=== PATIENT | male | born 1955 | race Two or more races ===

== ENCOUNTER 2018-01-10 10:06 | Emergency (ER) | payer OTHER ==
[2018-01-10 10:30] VITALS: BMI 35.5
--- NOTE | 2018-01-10 10:40 | PDOC ---
History of Present Illness - History of Present Illness Initial Comments: 62 year old male with PMH HTN, CAD (stents x 3 in 1999), GERD, NIDDM, and dyslipidemia presenting with pain, swelling, and erythema to his right lower leg for the past week. Patient tripped in his driveway on and cut his leg on 01/04 over a barbell and scratched his leg on the cement. His family noticed some redness and swelling over the laceration. He went to urgent care and received 2.5-3 days of doxycycline 100 BID but it has worsened since then. He hasn't discussed this with his PCP (Dr. Phillips). Denies any fevers, chills, drainage from the wound, or other symptoms. He has had an infection of his left leg before but needed IV antibiotics after some failed PO therapy in the past. 01/10/18 10:42 <Mary Springer - Last Filed: 01/10/18 14:05> <Collins Riley - Last Filed: 01/10/18 16:02> - General Chief Complaint: Wound Stated Complaint: LACERRATION LOWER RT LEG Time Seen by Provider: 01/10/18 10:40 Past History - Past Medical History Anemia: No Asthma: No Cancer: No Cardiac Disorders: Yes ([place] STENT TIMES TWO) CVA: No COPD: No CHF: No Dementia: No Diabetes: Yes (borderline) GI Disorders: Yes (GAS) Disorders: Yes (BLADDER TUMOR) HTN: Yes Hypercholesterolemia: Yes Liver Disease: No Seizures: No Thyroid Disease: No - Surgical History Abdominal Surgery: No Appendectomy: No Cardiac Surgery: Yes (STENT TIMES TWO) Cholecystectomy: No Lung Surgery: No Neurologic Surgery: No Orthopedic Surgery: Yes (LEFT FEMUR FX WITH AHMET INSERTION AND REMOVAL) - Immunization History Immunization Up to Date: Yes - Suicide/Smoking/Psychosocial Hx Smoking Status: No Smoking History: Never smoked Have you smoked in the past 12 months: No Number of Cigarettes Smoked Daily: 0 Hx Alcohol Use: No Drug/Substance Use Hx: No Substance Use Type: None Hx Substance Use Treatment: No <Mary Springer - Last Filed: 01/10/18 14:05> <Collins Riley - Last Filed: 01/10/18 16:02> - Past Medical History Allergies/Adverse Reactions: Allergies Allergy/AdvReac Type Severity Reaction Status Date / Time No Known Allergies Allergy Verified 02/17/14 17:17 Home Medications: Ambulatory Orders Aspirin 81 mg PO DAILY 05/21/13 Atorvastatin Ca [Lipitor] 40 mg PO HS 05/21/13 Enalapril Maleate [Vasotec -] 5 mg PO DAILY 05/21/13 Metoprolol Succinate [Toprol XL -] 25 mg PO DAILY 05/21/13 Lansoprazole [Prevacid] 30 mg PO DAILY 03/11/15 Bacillus Coagulans [Probiotic] 1 each PO DAILY 14 Days #14 capsule. 01/10/18 Cephalexin [Keflex] 500 mg PO QID 10 Days #40 capsule 01/10/18 Clindamycin [Cleocin -] 300 mg PO TID 10 Days #30 capsule 01/10/18 Review of Systems - Review of Systems Constitutional: No: Chills, Diaphoresis, Fever, Loss of Appetite HEENTM: No: Blurred Vision, Tearing, Recent change in vision, Double Vision Respiratory: No: Cough, Orthopnea, Shortness of Breath Cardiac (ROS): No: Chest Pain, Edema, Irregular Heart Rate ABD/GI: No: Abdominal Distended, Constipated, Diarrhea, Nausea, Poor Appetite : No: Burning, Dysuria, Discharge, Frequency Musculoskeletal: No: Gout, Joint Pain, Joint Swelling, Joint Stiffness Integumentary: Yes: Erythema, Lesions, Rash. No: Bruising Neurological: No: Headache, Numbness, Paresthesia, Pre-Existing Deficit Hematologic/Lymphatic: No: Anemia, Blood Clots, Easy Bleeding, Easy Bruising <Mary Springer - Last Filed: 01/10/18 14:05> *Physical Exam - Vital Signs Last Vital Signs Temp Pulse Resp BP Pulse Ox 97.5 F L 63 18 163/80 97 01/10/18 10:24 01/10/18 10:24 01/10/18 10:24 01/10/18 10:24 01/10/18 10:24 - Physical Exam General Appearance: Yes: Nourished, Appropriately Dressed. No: Apparent Distress HEENT: positive: EOMI, MARIXA, Normal ENT Inspection, Normal Voice Neck: positive: Trachea midline, Normal Thyroid, Supple. negative: Tender, Rigid Respiratory/Chest: positive: Lungs Clear, Normal Breath Sounds. negative: Chest Tender, Respiratory Distress Cardiovascular: positive: Regular Rhythm, Regular Rate Gastrointestinal/Abdominal: positive: Normal Bowel Sounds, Flat, Soft. negative : Tender Musculoskeletal: positive: Normal Inspection. negative: Decreased Range of Motion Extremity: positive: Normal Capillary Refill, Normal Range of Motion, Tender. negative: Normal Inspection (5x 4 area of erythema and slight swelling over right inferior lateral leg with 4 cm laceration across leg. Tender to palpation but no drainage or fluctuance. No streaking or mottling peripheral to the wound. ) Integumentary: positive: Dry, Warm, Erythema, Rash. negative: Normal Color Neurologic: positive: hull molder II-XII NML intact, Fully Oriented, Alert, Normal Mood/ Affect, Normal Response, Motor Strength 5/5 <Mary Springer - Last Filed: 01/10/18 14:05> - Vital Signs Last Vital Signs Temp Pulse Resp BP Pulse Ox 97.7 F 60 18 141/95 99 01/10/18 14:48 01/10/18 14:48 01/10/18 14:48 01/10/18 14:48 01/10/18 14:48 <Collins Riley - Last Filed: 01/10/18 16:02> ED Treatment Course - LABORATORY CBC & Chemistry Diagram: 01/10/18 12:00 01/10/18 12:00 <Mary Springer - Last Filed: 01/10/18 14:05> - LABORATORY CBC & Chemistry Diagram: 01/10/18 12:00 01/10/18 12:00 - ADDITIONAL ORDERS Additional order review: Laboratory Results 01/10/18 12:00 Sodium 137 Potassium 3.9 Chloride 102 Carbon Dioxide 30 Anion Gap 4 L BUN 17 Creatinine 1.2 Creat Clearance w eGFR > 60 Random Glucose 163 H Calcium 9.0 Total Bilirubin 0.4 AST 17 ALT 28 Alkaline Phosphatase 91 C-Reactive Protein < 0.3 Total Protein 7.4 Albumin 4.0 01/10/18 12:00 RBC 5.02 MCV 88.0 MCHC 33.2 RDW 13.6 MPV 9.8 D Neutrophils % 64.3 Lymphocytes % 26.7 Monocytes % 7.6 Eosinophils % 0.7 Basophils % 0.7 <Collins Riley - Last Filed: 01/10/18 16:02> Medical Decision Making - Medical Decision Making 62 year old diabetic male with right lower leg laceration and worsening erythema concerning for cellulitis refractory to PO doxycycline therapy x 2-3 days. Labs, foot XR, and doppler all WNL. un-concerning. Patient overall is very well appearing. Will C with crutches, wound care follow up in two days, and abx spectrum increase to Bactrim/ Keflex to cover anaerobes/ gram negatives. Patient is OK with this plan and understands that he need to see the personnel security specialist tomorrow. 01/10/18 13:07 <Mary Springer - Last Filed: 01/10/18 14:05> - Medical Decision Making Clindamycin, not bactrim / keflex 2/2 pt. is on an jeannette <Collins Riley - Last Filed: 01/10/18 16:02> *DC/Admit/Observation/Transfer - Discharge Dispostion Decision to Admit order: No <Mary Springer - Last Filed: 01/10/18 14:05> <Collins Riley - Last Filed: 01/10/18 16:02> Diagnosis at time of Disposition: Cellulitis, leg Qualifiers: Laterality: right Qualified Code(s): L03.115 - Cellulitis of right lower limb - Discharge Dispostion Disposition: HOME Condition at time of disposition: Stable - Prescriptions Prescriptions: Bacillus Coagulans [Probiotic] 1 each PO DAILY 14 Days #14 capsule. Cephalexin [Keflex] 500 mg PO QID 10 Days #40 capsule Clindamycin [Cleocin -] 300 mg PO TID 10 Days #30 capsule - Referrals Referrals: William Cote MD [Staff Physician] - - Patient Instructions Printed Discharge Instructions: DI for Wound Infection Additional Instructions: Sangramos que mayo herida no sea tratada con antibiticos orales y no necesita antibiticos por va intravenosa. Vaya a la farmacia en [address] y obtenga los nuevos antibiticos. Necesitas Bactrim y Keflex. Keflex es cuatro veces al da silvano vicky valentino. Bactrim es flori veces al da silvano 10 valentino. Tambin te dimos probiticos que ayudan a tu estmago. Algunos antibiticos pueden cambiar kobi heces, por lo que los probiticos evitarn que esto suceda. Tmalos altagracia vez al da. Por favor tome los antibiticos hoy. Regrese maana para altagracia revisin de heridas en el primer piso de la clnica de cuidado de heridas a las 10:00 AM. Por favor use muletas para ayudar a mantener el peso fuera de mayo pie. Regrese antes si tiene fiebre, escalofros, nuseas, vmitos y diarrea. Print Language: PORTUGUESE
[2018-01-10 12:13] LABS: BASO % 0.7 % (0-2.0); EOS % 0.7 % (0-4.5); HEMATOCRIT 44.2 % (35.4-49); HEMOGLOBIN 14.7 GM/dL (11.7-16.9); LYMPH % 26.7 % (8-40); MCH 29.2 pg (25.7-33.7); MCHC 33.2 g/dl (32.0-35.9); MEAN PLT VOLUME 9.8 fl (7.5-11.1); MONO % 7.6 % (3.8-10.2); NEUT % 64.3 % (42.8-82.8); PLATELET COUNT 218 K/MM3 (134-434); RBC 5.02 M/mm3 (4.00-5.60); RDW 13.6 % (11.9-15.9); WHITE BLOOD COUNT 6.7 K/mm3 (4.0-10.0)
--- NOTE | 2018-01-10 12:19 | PDOC ---
Attending Attestation - Resident Resident Name: Mary Springer - ED Attending Attestation I have performed the following: I have examined & evaluated the patient, The case was reviewed & discussed with the resident, I agree w/resident's findings & plan, Exceptions are as noted - HPI HPI: 01/10/18 12:18 Reviewed Residents HPI - Physicial Exam PE: 01/10/18 12:18 Reviewed Residents PE - Medical Decision Making 01/10/18 12:18 62 years old past medical history significant for hypertension, NIDDM, CAD stents 3, GERD, dyslipidemia presents with wounds and infection to right lower leg. This occurred 6 days ago patient was treated with doxycycline 2-3 days ago from an urgent care but the redness swelling and pain has progressively worsened Rash on leg is approximately 4 cm x 4 cm. There is no lymphangitic spread. 2-1/2 days on antibiotics patient well-appearing no fever no white count at this time I think it is reasonable to change and it patient's anabiotic coverage to clindamycin. We have made an appointment for him to follow up in our wound care clinic tomorrow at 10 AM. If there is any significant worsening by tomorrow morning patient will return to the emergency department for admission for IV antibiotics otherwise will trial clindamycin closely observe patient and reassessed Findings, the need for follow-up and strict return instructions discussed with patient.
[2018-01-10 12:38] LABS: ALK PHOS 91 U/L (45-117); ANION GAP 4 MMOL/L (8-16); BILIRUBIN,TOTAL 0.4 mg/dL (0.2-1); BLOOD UREA NITROGEN 17 mg/dL (7-18); CHLORIDE 102 mmol/L (98-107); CO2 30 mmol/L (21-32); CREATININE 1.2 mg/dL (0.55-1.3); GLUCOSE,RANDOM 163 mg/dL (74-106); POTASSIUM 3.9 mmol/L (3.5-5.1); SGOT/AST 17 U/L (15-37); SGPT/ALT 28 U/L (13-61); SODIUM 137 mmol/L (136-145); TOT PROT 7.4 g/dl (6.4-8.2)
[2018-01-10 13:27] LABS: ERYTHROCYTE SEDIMENTATION RATE 8 mm/hr (0-20)
[2018-01-10 14:50] VITALS: BP 141/95; PULSE 60; TEMP 97.7
== END 2018-01-10 14:50 | disposition home or self-care (01) ==
LOC: JER 10:06
DX: S81.811A Laceration without foreign body, right lower leg, initial encounter (principal); L03.115 Cellulitis of right lower limb; W01.0XXA Fall on same level from slipping, tripping and stumbling without subsequent striking against object, initial encounter; Y93.89 Activity, other specified; Y92.038 Other place in apartment as the place of occurrence of the external cause; Y99.8 Other external cause status; I25.10 Atherosclerotic heart disease of native coronary artery without angina pectoris; Z95.5 Presence of coronary angioplasty implant and graft; I10 Essential (primary) hypertension; I25.2 Old myocardial infarction; E11.9 Type 2 diabetes mellitus without complications; K21.9 Gastro-esophageal reflux disease without esophagitis; E78.5 Hyperlipidemia, unspecified
CPT/HCPCS: 36415; 73590-TC-RT-FY; 80053; 85025; 85651; 86140; 87040; 93971-TC; 99282-25

== ENCOUNTER 2019-01-07 04:50 | Emergency (ER) | payer OTHER ==
[2019-01-07 05:24] VITALS: BMI 35.5
[2019-01-07] MEDS ORDERED: SODIUM CHLORIDE 0.9% 500 ML INFUS.BAG IV ONE (05:33)
--- NOTE | 2019-01-07 05:33 | PDOC ---
History of Present Illness - General Chief Complaint: Pain, Acute Stated Complaint: PAIN/BLOOD IN URINE Time Seen by Provider: 01/07/19 05:18 - History of Present Illness Initial Comments: 01/07/19 06:17 63yo M hx DM, HTN, CAD (s/p 3 stents in 1999), and HLD presents from home c/o hematuria and R flank/RLQ pain. Hematuria x2 days, intermittent. Endorses chronic polyuria; denies urgency or dysuria. R flank pain started last night rapid onset intermittent stabbing, initially in R flank then moved anteriorly and is now in RLQ with pains radiating down R leg (making it feel sleepy), took 1 pill of unknown OTC pain medication at 0300 without improvement. Denies trauma , hx kidney stones or UTI or kidney issues, midline back pain, hx back pain, hx similar sx. Endorses nausea x 2days, denies vomiting. Endorses mild intermittent lightheadedness, denies vertigo. Has not eaten since yesterday due to nausea. Denies fever, chills, fatigue, headache, syncope, vertigo, numbness/ tingling, weakness, vision changes, shortness of breath, cough, chest pain, palpitations, leg swelling, blood in stool, diarrhea, constipation, vomiting, dysuria, sick contacts, recent travel. Past History - Past Medical History Allergies/Adverse Reactions: Allergies Allergy/AdvReac Type Severity Reaction Status Date / Time No Known Allergies Allergy Verified 01/07/19 05:15 Home Medications: Ambulatory Orders Aspirin 81 mg PO DAILY 01/07/19 Atorvastatin Ca [Lipitor] 40 mg PO HS 01/07/19 Ibuprofen [Motrin -] 600 mg PO QID #30 tablet 01/07/19 Linagliptin [Tradjenta] 5 mg PO DAILY 01/07/19 Lisinopril [Prinivil] 20 mg PO DAILY 01/07/19 Metoprolol Succinate [Toprol Xl] 25 mg PO DAILY 01/07/19 Omeprazole 40 mg PO DAILY 01/07/19 Oxybutynin Chloride [Oxybutynin Chloride ER] 15 mg PO DAILY 01/07/19 Anemia: No Asthma: No Cancer: No Cardiac Disorders: Yes ([place] STENTS) CVA: No COPD: No CHF: No Dementia: No Diabetes: Yes (borderline) GI Disorders: Yes (GAS) Disorders: Yes (BLADDER TUMOR) HTN: Yes Hypercholesterolemia: Yes Liver Disease: No Seizures: No Thyroid Disease: No - Surgical History Abdominal Surgery: No Appendectomy: No Cardiac Surgery: Yes (STENTS) Cholecystectomy: No Lung Surgery: No Neurologic Surgery: No Orthopedic Surgery: Yes (LEFT FEMUR FX WITH AHMET INSERTION AND REMOVAL) - Immunization History Immunization Up to Date: Yes - Psycho Social/Smoking Cessation Hx Smoking Status: No Smoking History: Unknown if ever smoked Have you smoked in the past 12 months: No Number of Cigarettes Smoked Daily: 0 Hx Alcohol Use: No Drug/Substance Use Hx: No Substance Use Type: None Hx Substance Use Treatment: No Review of Systems - Review of Systems Comments:: 01/07/19 06:17 Constitutional: Negative for chills, fever, fatigue, diaphoresis. HENT: Negative for sore throat, rhinorrhea, congestion. Eyes: Negative for visual disturbance. Respiratory: Negative for shortness of breath, cough, and wheezing. Cardiovascular: Negative for chest pain, palpitations, and leg swelling. Gastrointestinal: Positive for abdominal pain, nausea. Negative for blood in stool, constipation, diarrhea, and vomiting. Genitourinary: Positive for R flank pain and hematuria. Negative for dysuria. Musculoskeletal: Negative for myalgias, back pain, and neck pain. Skin: Negative for rash. Neurological: Positive for light-headedness. Negative for vertigo, syncope, weakness, numbness and headaches. Psychiatric/Behavioral: Negative for behavioral problems and confusion. *Physical Exam - Vital Signs Last Vital Signs Temp Pulse Resp BP Pulse Ox 97.5 F L 94 H 20 144/80 97 01/07/19 05:09 01/07/19 05:09 01/07/19 05:09 01/07/19 05:09 01/07/19 05:09 - Physical Exam Comments: 01/07/19 06:17 Gen: Alert, NAD, uncomfortable-appearing in pain, obese HEENT: PERRL, EOMI, MMM, NCAT. No conjunctival pallor. Sclera are non-icteric. CV: Regular rate and rhythm. No murmurs, rubs, or gallops. PULM: No resp distress. CTAB, no wheezes, rales, or rhonchi. ABD: +R CVA tenderness, protuberant, soft, NT/ND, no rebound tenderness or guarding. BACK: No TTP of c/t/l-spine. No step-offs or deformities. MSK: No bony deformities. 2+ pulses in all extremities. NEURO: AAOx3. PERRL. No gross CN deficits. Strength and sensation grossly intact throughout. EXTREMITIES: No cyanosis. No clubbing. No edema. No calf tenderness. PSYCH: Normal mood and thought pattern. SKIN: Warm and dry. Normal capillary refill. No rashes. No jaundice. ED Treatment Course - LABORATORY CBC & Chemistry Diagram: 01/07/19 06:50 01/07/19 06:50 Medical Decision Making - Medical Decision Making 01/07/19 06:17 63yo M hx DM, HTN, CAD (s/p 3 stents in 1999), and HLD presents from home with hematuria x2 days and 1 night of pain starting in R flank now moved to RLQ radiating down R leg, associated with nausea. Of note, pt denies kidney or bladder problems, but hx renal mass and bladder tumor per chart. Hemodynamically stable, afebrile, +R CVA tenderness. Most likely renal etiology , renal stone vs UTI/pyelo vs renal mass - UA/UC and R renal US. Also consider bladder etiology due to hx of bladder tumor. Consistency of presentation with kidney stones makes other etiologies of lower concern - pending labs and R renal US, consider further testing of other pathologies. Consider GI pathologies such as appendicitis, diverticulitis, or colitis, though of low concern due to location of pain; hematuria; and lack of fever, diarrhea, or vomiting. Very low concern for cardiac or pulmonary etiology due to lack of CP or SOB. Very low concern for vascular pathology such as aortic dissection due to lack of tearing nature of pain, location of pain, hemodynamic stability, and BP 120s-140s/70s-80s in b/l arms - no further testing indicated at this time. -CBC, CMP, Coags, UA/UC -Morphine for pain -IVF -R renal US -Pending US and labs, consider CT -Dispo: pending w/u 01/07/19 07:[address] Larios. Discharge - Discharge Information Problems reviewed: Yes Clinical Impression/Diagnosis: Hematuria Qualifiers: Hematuria type: unspecified type Qualified Code(s): R31.9 - Hematuria, unspecified Condition: Stable Disposition: HOME - Additional Discharge Information Prescriptions: Ibuprofen [Motrin -] 600 mg PO QID #30 tablet - Follow up/Referral Referrals: Bal Phillips MD [Primary Care Provider] - - Patient Discharge Instructions Patient Printed Discharge Instructions: DI for Hematuria Additional Instructions: You came into the emergency department for blood in your urine. Our workup did not show signs of infection or blockage in your urinary tract. Call your urologist today and make an appointment. Your workup is not complete until you do so. You can take [id number] tylenol or motrin for pain. Follow the instructions on the medication bottle. Immediate medical attention is required if you have: high fevers, chills, persistent vomiting, stop urinating, or any new or concerning symptoms. If you think you are having an emergency, call for emergency medical services or present to the emergency department right away - Post Discharge Activity
[2019-01-07] MEDS ORDERED: morphine CARPU-JECT 2 MG/1 ML DISP.SYRIN IVPUSH ONE (05:34)
--- NOTE | 2019-01-07 05:45 | PDOC ---
Attending Attestation - Resident Resident Name: Any Rapp - ED Attending Attestation I have performed the following: I have examined & evaluated the patient, The case was reviewed & discussed with the resident, I agree w/resident's findings & plan - HPI HPI: 01/07/19 06:33 Pt comes with 2 days of hematuria and right flank pain going to the RLQ. 01/08/19 01:32 63yo M hx DM, HTN, CAD (s/p 3 stents in 1999), and HLD presents from home c/o hematuria and R flank/RLQ pain. Hematuria x2 days, intermittent. Endorses chronic polyuria; denies urgency or dysuria. R flank pain started last night rapid onset intermittent stabbing, initially in R flank then moved anteriorly and is now in RLQ with pains radiating down R leg (making it feel sleepy), took 1 pill of unknown OTC pain medication at 0300 without improvement. Pt has a hx of coming to the ER for bladder neoplasm and renal masses. - Physicial Exam PE: 01/08/19 01:33 Agree with resident exam - Medical Decision Making 01/08/19 01:39 Pt will be signed out to the day ER docs. Needs admission for hematuria and urology consult.
[2019-01-07 05:48] LABS: PH,URINE 5.5 (5.0-8.0); URINE APPEARANCE Cloudy; URINE BILIRUBIN Negative (NEGATIVE); URINE COLOR Brown; URINE GLUCOSE (UA) Negative (NEGATIVE); URINE KETONE Negative (NEGATIVE); URINE LEUK ESTERASE Negative (NEGATIVE); URINE NITRITE Negative (NEGATIVE); URINE PROTEIN 2+ (NEGATIVE); URINE UROBILINOGEN 0.2 mg/dL (0.2-1.0)
[2019-01-07] MEDS ORDERED: MORPHINE SULFATE 2 MG/ML VIAL ONE (06:13)
--- NOTE | 2019-01-07 07:33 | PDOC ---
History of Present Illness - General Chief Complaint: Pain, Acute Stated Complaint: PAIN/BLOOD IN URINE Time Seen by Provider: 01/07/19 05:18 Past History - Past Medical History Allergies/Adverse Reactions: Allergies Allergy/AdvReac Type Severity Reaction Status Date / Time No Known Allergies Allergy Verified 01/07/19 05:15 Home Medications: Ambulatory Orders Aspirin 81 mg PO DAILY 01/07/19 Atorvastatin Ca [Lipitor] 40 mg PO HS 01/07/19 Ibuprofen [Motrin -] 600 mg PO QID #30 tablet 01/07/19 Linagliptin [Tradjenta] 5 mg PO DAILY 01/07/19 Lisinopril [Prinivil] 20 mg PO DAILY 01/07/19 Metoprolol Succinate [Toprol Xl] 25 mg PO DAILY 01/07/19 Omeprazole 40 mg PO DAILY 01/07/19 Oxybutynin Chloride [Oxybutynin Chloride ER] 15 mg PO DAILY 01/07/19 Anemia: No Asthma: No Cancer: No Cardiac Disorders: Yes ([place] STENTS) CVA: No COPD: No CHF: No Dementia: No Diabetes: Yes (borderline) GI Disorders: Yes (GAS) Disorders: Yes (BLADDER TUMOR) HTN: Yes Hypercholesterolemia: Yes Liver Disease: No Seizures: No Thyroid Disease: No - Surgical History Abdominal Surgery: No Appendectomy: No Cardiac Surgery: Yes (STENTS) Cholecystectomy: No Lung Surgery: No Neurologic Surgery: No Orthopedic Surgery: Yes (LEFT FEMUR FX WITH AHMET INSERTION AND REMOVAL) - Immunization History Immunization Up to Date: Yes - Psycho Social/Smoking Cessation Hx Smoking Status: No Smoking History: Unknown if ever smoked Have you smoked in the past 12 months: No Number of Cigarettes Smoked Daily: 0 Hx Alcohol Use: No Drug/Substance Use Hx: No Substance Use Type: None Hx Substance Use Treatment: No *Physical Exam - Vital Signs Last Vital Signs Temp Pulse Resp BP Pulse Ox 97.5 F L 94 H 20 144/80 97 01/07/19 05:09 01/07/19 05:09 01/07/19 05:09 01/07/19 05:09 01/07/19 05:09 ED Treatment Course - LABORATORY CBC & Chemistry Diagram: 01/07/19 06:50 01/07/19 06:50 - ADDITIONAL ORDERS Additional order review: Laboratory Results 01/07/19 05:30 Urine Color Brown Urine Appearance Cloudy Urine pH 5.5 Ur Specific Kuna 1.025 Urine Protein 2+ H Urine Glucose (UA) Negative Urine Ketones Negative Urine Blood 3+ H Urine Nitrite Negative Urine Bilirubin Negative Urine Urobilinogen 0.2 Ur Leukocyte Esterase Negative - Medications Given in the ED: ED Medications Discontinued Medications Generic Name Dose Route Start Last Admin Trade Name Keyla PRN Reason Stop Dose Admin Morphine Sulfate 2 mg 01/07/19 05:34 01/07/19 06:15 Morphine Injection - IVPUSH 01/07/19 05:35 2 mg ONCE ONE Administration Sodium Chloride 1,000 ml 01/07/19 05:33 01/07/19 06:12 Normal Saline - IV 01/07/19 05:34 1,000 ml ONCE ONE Administration Medical Decision Making - Medical Decision Making Patient signed out from Dr. Rapp 63yo M hx DM, HTN, CAD (s/p 3 stents in 1999), and HLD presents from home c/o hematuria and R flank/RLQ pain. 01/07/19 07:33 CBC WBC 8.2 K/mm3 (4.0-10.0) 01/07/19 06:50 RBC 4.43 M/mm3 (4.00-5.60) 01/07/19 06:50 Hgb 13.3 GM/dL (11.7-16.9) 01/07/19 06:50 Hct 39.8 % (35.4-49) 01/07/19 06:50 MCV 89.8 fl (80-96) 01/07/19 06:50 MCH 30.0 pg (25.7-33.7) 01/07/19 06:50 MCHC 33.4 g/dl (32.0-35.9) 01/07/19 06:50 RDW 13.4 % (11.9-15.9) 01/07/19 06:50 Plt Count 164 K/MM3 (134-434) D 01/07/19 06:50 MPV 10.2 fl (7.5-11.1) 01/07/19 06:50 Absolute Neuts (auto) 6.9 K/mm3 (1.5-8.0) 01/07/19 06:50 Neutrophils % 83.9 % (42.8-82.8) H D 01/07/19 06:50 Lymphocytes % 10.0 % (8-40) D 01/07/19 06:50 Monocytes % 5.5 % (3.8-10.2) 01/07/19 06:50 Eosinophils % 0.1 % (0-4.5) D 01/07/19 06:50 Basophils % 0.5 % (0-2.0) 01/07/19 06:50 Nucleated RBC % 0 % (0-0) 01/07/19 06:50 No leukocytosis CMP Sodium 138 mmol/L (136-145) 01/07/19 06:50 Potassium 4.4 mmol/L (3.5-5.1) 01/07/19 06:50 Chloride 105 mmol/L (98-107) 01/07/19 06:50 Carbon Dioxide 28 mmol/L (21-32) 01/07/19 06:50 Anion Gap 4 MMOL/L (8-16) L 01/07/19 06:50 BUN 19.9 mg/dL (7-18) H 01/07/19 06:50 Creatinine 1.2 mg/dL (0.55-1.3) 01/07/19 06:50 Est GFR (CKD-EPI)AfAm 73.11 01/07/19 06:50 Est GFR (CKD-EPI)NonAf 63.08 01/07/19 06:50 Random Glucose 169 mg/dL (74-106) H 01/07/19 06:50 Calcium 8.9 mg/dL (8.5-10.1) 01/07/19 06:50 Total Bilirubin 0.4 mg/dL (0.2-1) 01/07/19 06:50 AST 13 U/L (15-37) L 01/07/19 06:50 ALT 22 U/L (13-61) 01/07/19 06:50 Alkaline Phosphatase 76 U/L (45-117) 01/07/19 06:50 Total Protein 6.4 g/dl (6.4-8.2) 01/07/19 06:50 Albumin 3.9 g/dl (3.4-5.0) 01/07/19 06:50 Electrolytes unremarkable UA with proteinuria and hematuria; negative for infection Renal US as read by radiology: "Compared to prior examination dated 11/29/2014 The right kidney measures 10 cm in sagittal length with a simple cyst since lower pole measuring 2 x 1.7 cm. Left kidney measures 10.2 cm in sagittal length. No renal stones, hydronephrosis or solid mass lesion are identified, bilaterally. Visualized portion of the liver appears unremarkable Impression: Right renal lower pole simple cyst measuring 2 x 1.7 cm. Both kidneys appear otherwise unremarkable " 01/07/19 08:17 Pain is controlled Renal US without stone or hydronephrosis Normal Cr UA negative for infection Patient to follow up with urologist Discharged with return precautions 01/07/19 09:00 Discharge - Discharge Information Problems reviewed: Yes Clinical Impression/Diagnosis: Hematuria Qualifiers: Hematuria type: unspecified type Qualified Code(s): R31.9 - Hematuria, unspecified Condition: Stable Disposition: HOME - Additional Discharge Information Prescriptions: Ibuprofen [Motrin -] 600 mg PO QID #30 tablet - Follow up/Referral Referrals: Bal Phillips MD [Primary Care Provider] - - Patient Discharge Instructions Patient Printed Discharge Instructions: DI for Hematuria Additional Instructions: You came into the emergency department for blood in your urine. Our workup did not show signs of infection or blockage in your urinary tract. Call your urologist today and make an appointment. Your workup is not complete until you do so. You can take srky-ljh-hvhcjlc tylenol or motrin for pain. Follow the instructions on the medication bottle. Immediate medical attention is required if you have: high fevers, chills, persistent vomiting, stop urinating, or any new or concerning symptoms. If you think you are having an emergency, call for emergency medical services or present to the emergency department right away - Post Discharge Activity
[2019-01-07 07:40] LABS: ALBUMIN 3.9 g/dl (3.4-5.0); BILIRUBIN,TOTAL 0.4 mg/dL (0.2-1); BLOOD UREA NITROGEN 19.9 mg/dL (7-18); CALCIUM 8.9 mg/dL (8.5-10.1); CREATININE 1.2 mg/dL (0.55-1.3); POTASSIUM 4.4 mmol/L (3.5-5.1); TOT PROT 6.4 g/dl (6.4-8.2)
[2019-01-07 07:54] LABS: INR 1.05 (0.83-1.09); PROTHROMBIN TIME (PATIENT) 12.4 SEC (9.7-13.0)
[2019-01-07 08:18] LABS: BASO % 0.5 % (0-2.0); EOS % 0.1 % (0-4.5); HEMATOCRIT 39.8 % (35.4-49); HEMOGLOBIN 13.3 GM/dL (11.7-16.9); MCHC 33.4 g/dl (32.0-35.9); MEAN CELL VOLUME 89.8 fl (80-96); MEAN PLT VOLUME 10.2 fl (7.5-11.1); MONO % 5.5 % (3.8-10.2); NEUT % 83.9 % (42.8-82.8); PLATELET COUNT 164 K/MM3 (134-434); RBC 4.43 M/mm3 (4.00-5.60); RDW 13.4 % (11.9-15.9); WHITE BLOOD COUNT 8.2 K/mm3 (4.0-10.0)
[2019-01-07 09:11] VITALS: BP 124/82; PULSE 84; TEMP 98
[2019-01-07 09:43] LABS: EPI CELLS OCC /HPF (0-5/HPF); URINE BACTERIA 2+ /hpf (NEGATIVE); URINE RBC >100 /hpf (0-4); URINE WBC 0-2 /hpf (0-5)
== END 2019-01-07 09:11 | disposition home or self-care (01) ==
LOC: JER 04:50
PROC: 3E033NZ Introduction of Analgesics, Hypnotics, Sedatives into Peripheral Vein, Percutaneous Approach (ICD-10-PCS; principal; 2019-01-07)
DX: R31.9 Hematuria, unspecified (principal); I25.10 Atherosclerotic heart disease of native coronary artery without angina pectoris; I10 Essential (primary) hypertension; Z95.5 Presence of coronary angioplasty implant and graft; I25.2 Old myocardial infarction; E11.9 Type 2 diabetes mellitus without complications; Z79.84 Long term (current) use of oral hypoglycemic drugs; E78.5 Hyperlipidemia, unspecified; E78.00 Pure hypercholesterolemia, unspecified; R14.3 Flatulence; D49.4 Neoplasm of unspecified behavior of bladder
CPT/HCPCS: 36415; 76775-TC; 80053; 81003; 85025; 85610; 85730; 87086; 96374; 99284-25

== ENCOUNTER 2019-01-12 20:37 | Inpatient (IN) | payer OTHER ==
--- NOTE | 2019-01-12 21:12 | PDOC ---
History of Present Illness - General Chief Complaint: Chest Pain Stated Complaint: CHEST PAIN Time Seen by Provider: 01/12/19 21:12 History Source: Patient Exam Limitations: No Limitations - History of Present Illness Initial Comments: 01/12/19 21:12 Nato Aguirre is a 63M Northern Irish-speaking with PMH CAD s/p 3 stents, R renal cyst , NIDDM, HLD, presenting with7 days of constipation, one day chest pain, and R flank pain with hematuria. With barley steeper assistance, patient reports that he has been having 7 days of sharp R-sided flank pain on and off. Was seen at [facility] ED for similar pain, and was evaluated and found a R renal cyst and was discharged home with urology f/u , but has not been able to see his urologist due to insurance issues. Also has some midline chest pain that he describes as a knot in his chest, has since resolved by the time he arrived in ED. Has history of CAD, says this chest pain is different from his heart chest pain, but that his flank pain is the most concerning thing for him. Yesterday had one episode of black urine that has since resolved. Has been constipated for the last 7 days, trialled Miralax and docusate without improvement, and his abdomen is getting bigger and bigger and is painful. Past History - Past Medical History Allergies/Adverse Reactions: Allergies Allergy/AdvReac Type Severity Reaction Status Date / Time No Known Allergies Allergy Verified 01/07/19 05:15 Home Medications: Ambulatory Orders Aspirin 81 mg PO DAILY 01/07/19 Atorvastatin Ca [Lipitor] 40 mg PO HS 01/07/19 Ibuprofen [Motrin -] 600 mg PO QID #30 tablet 01/07/19 Linagliptin [Tradjenta] 5 mg PO DAILY 01/07/19 Lisinopril [Prinivil] 20 mg PO DAILY 01/07/19 Metoprolol Succinate [Toprol Xl] 25 mg PO DAILY 01/07/19 Omeprazole 40 mg PO DAILY 01/07/19 Oxybutynin Chloride [Oxybutynin Chloride ER] 15 mg PO DAILY 01/07/19 Magnesium Citrate [Citroma -] 195 ml PO ONCE #1 bottle 01/13/19 Anemia: No Asthma: No Cancer: No Cardiac Disorders: Yes (AK STENTS) CVA: No COPD: No CHF: No Dementia: No Diabetes: Yes (borderline) GI Disorders: Yes (GAS) Disorders: Yes (BLADDER TUMOR) HTN: Yes Hypercholesterolemia: Yes Liver Disease: No Seizures: No Thyroid Disease: No - Surgical History Abdominal Surgery: No Appendectomy: No Cardiac Surgery: Yes (STENTS) Cholecystectomy: No Lung Surgery: No Neurologic Surgery: No Orthopedic Surgery: Yes (LEFT FEMUR FX WITH AHMET INSERTION AND REMOVAL) - Immunization History Immunization Up to Date: Yes - Psycho Social/Smoking Cessation Hx Smoking Status: No Smoking History: Never smoked Have you smoked in the past 12 months: No Number of Cigarettes Smoked Daily: 0 Hx Alcohol Use: No Drug/Substance Use Hx: No Substance Use Type: None Hx Substance Use Treatment: No Review of Systems - Review of Systems Able to Perform ROS?: Yes Comments:: 01/13/19 00:28 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 No: Lightheadedness, Palpitations, Syncope ABD/GI: Yes: Abdominal Distended (says bladder is getting backed up), Constipated (7 days, has been taking Miralax to no effect). No: Diarrhea, Nausea, Vomiting : Yes: Flank Pain (R side), Hematuria (black urine yesterday). No: Burning, Dysuria, Discharge, Frequency Musculoskeletal: Yes: Back Pain. No: Muscle Pain, Muscle Weakness Integumentary: No: Symptoms Reported Neurological: No: Headache, Numbness, Paresthesia, Tremors, Weakness, Ataxia Endocrine: No: Symptoms Reported Hematologic/Lymphatic: No: Symptoms Reported All Other Systems: Reviewed and Negative *Physical Exam - Vital Signs Last Vital Signs Temp Pulse Resp BP Pulse Ox 99.4 F 17 L 16 166/92 99 01/12/19 20:52 01/12/19 20:52 01/12/19 20:52 01/12/19 20:52 01/12/19 20:52 - Physical Exam General Appearance: Yes: Nourished, Appropriately Dressed, Moderate Distress, Obese, Other (Patient appears uncomfortable on bed, lying on his left side with arms clutched on the railing.) HEENT: positive: EOMI, MARIXA, Normal Voice, Symmetrical, Pharynx Normal, Hearing Grossly Normal. negative: Scleral Icterus (R), Scleral Icterus (L), Pharyngeal Erythema, Tonsillar Exudate, Tonsillar Erythema Neck: positive: Trachea midline, Normal Thyroid, Supple. negative: Tender, Rigid, Decreased range of motion, Lymphadenopathy (R), Lymphadenopathy (L) Respiratory/Chest: positive: Lungs Clear, Normal Breath Sounds. negative: Respiratory Distress, Accessory Muscle Use, Labored Respiration, Crackles, Rales , Rhonchi Cardiovascular: positive: Regular Rhythm, Regular Rate. negative: Murmur Vascular Pulses: Dorsalis-Pedis (R): 2+, Doralis-Pedis (L): 2+ Gastrointestinal/Abdominal: positive: Soft, Protuberent. negative: Tender, Pulsatile Mass, Guarding, Rebound Musculoskeletal: positive: Normal Inspection, CVA Tenderness (R). negative: CVA Tenderness (L), Decreased Range of Motion, Vertebral Tenderness Extremity: positive: Normal Capillary Refill, Normal Inspection, Normal Range of Motion. negative: Tender Integumentary: positive: Normal Color, Dry, Warm. negative: Cold, Clammy Neurologic: positive: Fully Oriented, Alert, Normal Mood/Affect, Normal Response Deep Tendon Reflexes: Ankle (L): 0 ED Treatment Course - LABORATORY CBC & Chemistry Diagram: 01/12/19 23:45 01/12/19 23:45 Medical Decision Making - Medical Decision Making 01/12/19 21:12 Nato Aguirre is a 63M Northern Irish-speaking with PMH CAD s/p 3 stents, R renal cyst , NIDDM, HLD, presenting with7 days of constipation, one day chest pain, and R flank pain with hematuria. Patient's chest pain is most concerning for AK given cardiac history and needs evaluation with a full cardiac workup. PTX vs. PE vs. tamponade also possible but less likely given lack of respiratory distress, no evidence of decreased breath sounds on PE, no muffled heart sounds. Flank pain is most concerning to the patient, and appears to be in acute distress. Presentation is consistent with renal stones vs. renal cyst rupture vs. pyelo. Less likely to be pyelo given normal evaluation during last ED visit. Patient able to give urine sample and appears grossly normal, is not having urinary retention at this time. Will evaluate via: ECG CMP CBC UA/UC Lipase CXR Spiral CT 01/12/19 23:22 Difficulty [address] PIV, US-guided line placed in L brachial vein. Patient tolerated procedure well. Re-evaluation of patient at bedside reveals he is resting comfortably on his back in no acute distress. ECG shows NSR, HR 63, QTc 386, T waves inversions in III consistent with prior ECG. 01/12/19 23:40 Labs show no leukocytosis or anemia. Cr elevated to 1.6 from his baseline concerning for obstructive MANNY. UA shows trace blood concerning for renal calculus. 01/13/19 00:16 Patient's family member at bedside now. Says that patient had trouble communicating his issue. Patient known to have R renal cyst, has seen PMD and is on Abx for this issue, has had this colicky pain for a week now. However, is here for management of his constipation, as it is making his belly bigger. What likely occurred during the initial HPI was that the patient was having active colicky renal pain, but was attempting to explain his constipation. Explained lab results and plan with daughter, with plan to discharge home with Citroma if all results negative. 01/13/19 02:[address] Cat, plan is for spiral CT+read, repeat trop 0245, and CXR. If normal can be discharged home with Citroma. Discharge instructions and Citroma script done, just need to add CT scan results to discharge instructions if any abnormal findings. Discharge - Discharge Information Problems reviewed: Yes Clinical Impression/Diagnosis: Flank pain, Microscopic hematuria Constipation Qualifiers: Constipation type: unspecified constipation type Qualified Code(s): K59.00 - Constipation, unspecified Condition: Stable - Additional Discharge Information Prescriptions: Magnesium Citrate [Citroma -] 195 ml PO ONCE #1 bottle - Follow up/Referral Referrals: Bal Phillips MD [Primary Care Provider] - - Patient Discharge Instructions Patient Printed Discharge Instructions: DI for Constipation, DI for Hematuria Additional Instructions: Hoy fue evaluado por dolor en el pecho, dolor de espalda y estreimiento. Ally anlisis de norma muestran que tiene pequeas cantidades de norma en la orina y signos de lesin en el rin, lo que probablemente se deba a ruano quiste renal. Ally anlisis de norma no muestran evidencia de anemia, infeccin o anormalidades electrolticas. Ruano tomografa computarizada de ally riones muestra: Para ruano estreimiento, tome el medicamento que le hemos recetado, llamado Citroma, para ruano estreimiento. Bbalo en un lugar donde tenga acceso a un zack y recuerde beber muchos lquidos y rehidratarse despus de vaciar los intestinos. Shannan un seguimiento con ruano mdico de atencin primaria en los prximos 3 valentino para recibir ms atencin. Si experimenta un dolor de espalda que empeora, no puede orinar, no puede comer ni beber, tiene fiebre, nuseas, vmitos o dolor extremo, regrese a la elisha de emergencias. Para el estreimiento, consulte a ruano mdico de cabecera. Today you were evaluated for chest pain, back pain, and constipation. Your blood labs show that you have small amounts of blood in your urine and signs of injury to your kidney, which is likely due to your renal cyst. Your blood labs do not show any evidence of anemia, infection, or electrolyte abnormalities. Your CT scan of your kidneys shows: For your constipation, please take the medication we have prescribed, called Citroma, for your constipation. Drink it in a place where you have access to a restroom, and remember to drink a lot of fluids and rehydrate after you empty your bowels. Please follow-up with your primary doctor in the next 3 days for further care. If you experience worsening back pain, become unable to urinate, become unable to eat or drink, have fever, nausea, vomiting, or extreme pain, please return to the emergency room. For constipation, please see your primary doctor. - Post Discharge Activity
[2019-01-12] MEDS ORDERED: SODIUM CHLORIDE 1,000 ML IV STA (21:52)
[2019-01-12] MEDS ORDERED: morphine CARPU-JECT 4 MG/1 ML DISP.SYRIN IVPUSH ONE (21:52)
[2019-01-12] MEDS ORDERED: morphine SULFATE 4 MG/ML VIAL ONE (22:13)
[2019-01-12 22:43] LABS: EPI CELLS 0.9 /HPF (0-5/HPF); HYALINE CASTS 3 /lpf (0-8); PH,URINE 5.5 (5.0-8.0); URINE APPEARANCE CLEAR; URINE BACTERIA 2.4 /hpf (NEGATIVE); URINE BILIRUBIN NEGATIVE (NEGATIVE); URINE COLOR YELLOW; URINE GLUCOSE (UA) NEGATIVE (NEGATIVE); URINE KETONE NEGATIVE (NEGATIVE); URINE LEUK ESTERASE NEGATIVE (NEGATIVE); URINE NITRITE NEGATIVE (NEGATIVE); URINE PROTEIN 3+ (NEGATIVE); URINE RBC 22 /hpf (0-4); URINE UROBILINOGEN 0.2 mg/dL (0.2-1.0); URINE WBC 2 /hpf (0-5)
[2019-01-12 23:54] LABS: BASO % 0.5 % (0-2.0); EOS % 0.8 % (0-4.5); HEMATOCRIT 42.2 % (35.4-49); LYMPH % 15.5 % (8-40); MCH 29.5 pg (25.7-33.7); MCHC 33.2 g/dl (32.0-35.9); MEAN CELL VOLUME 88.8 fl (80-96); MEAN PLT VOLUME 9.2 fl (7.5-11.1); MONO % 9.3 % (3.8-10.2); NEUT % 73.9 % (42.8-82.8); PLATELET COUNT 207 K/MM3 (134-434); RBC 4.75 M/mm3 (4.00-5.60); RDW 13.4 % (11.9-15.9); WHITE BLOOD COUNT 7.9 K/mm3 (4.0-10.0)
[2019-01-13 00:10] LABS: ALBUMIN 4.1 g/dl (3.4-5.0); BILIRUBIN,TOTAL 0.5 mg/dL (0.2-1); BLOOD UREA NITROGEN 18.8 mg/dL (7-18); CREATININE 1.6 mg/dL (0.55-1.3); POTASSIUM 4.5 mmol/L (3.5-5.1); TOT PROT 7.1 g/dl (6.4-8.2)
--- NOTE | 2019-01-13 00:17 | PDOC ---
Documentation entered by Roya Ferguson SCRIBE, acting as scribe for Deidra Mehta MD. Deidra Mehta MD: This documentation has been prepared by the Phyllis beasley Xhesika, SCRIBE, under my direction and personally reviewed by me in its entirety. I confirm that the documentation accurately reflects all work, treatment, procedures, and medical decision making performed by me. Attending Attestation - Resident Resident Name: Shimon Tran - ED Attending Attestation I have performed the following: I have examined & evaluated the patient, The case was reviewed & discussed with the resident, I agree w/resident's findings & plan, Exceptions are as noted - HPI HPI: 01/13/19 00:00 The patient is a 63 year old male with a significant PMH of HTN, CAD (s/p 3 stents in 1999), and HLD who presents to the emergency department for R flank pain x 6 days. Patient notes he endorsed dark urine yesterday. Patient was seen here in the ED 01/07 and was told to f/u with Urology, however, patient could not follow up with Urology due to insurance problems. Patient notes he endorsed chest pressure this morning, that felt different from his previous NE. Patient not complaining of chest pain currently. When asked for more details about CP this morning, he states "that's not bothering me, I'm more concerned about this pain." The patient denies shortness of breath, headache, weakness/numbness and dizziness. Denies fever, chills, cough, nausea, vomiting, diarrhea and constipation. Denies dysuria, frequency, urgency. Denies urgency. Allergies: NKDA - Physicial Exam PE: 01/13/19 00:00 GENERAL: Awake, alert, and fully oriented, in no acute distress EYES: PERRLA, EOMI, sclera anicteric, conjunctiva clear ENT: oropharynx clear without exudates. Moist mucosa NECK: Normal ROM, supple, no lymphadenopathy, JVD, or masses LUNGS: Breath sounds equal, clear to auscultation bilaterally. No wheezes, and no crackles HEART: Regular rate and rhythm, normal S1 and S2, no murmurs, rubs or gallops ABDOMEN: Soft, nontender, normoactive bowel sounds. No guarding, no rebound. No masses. EXTREMITIES: Normal range of motion, no edema. No cords, erythema, or tenderness BACK: No midline spinal tenderness in cervical/thoracic/lumbar region. +R CVAT NEUROLOGICAL: Normal speech, cranial nerves intact, equal strength and sensation b/l SKIN: Warm, Dry, normal turgor, no rashes or lesions noted. - Medical Decision Making 01/13/19 00:09 63yo M hx DM, HTN, CAD (s/p 3 stents in 1999), and HLD presents to the emergency department with 6 days of progressive right-sided flank pain as well as dark urine yesterday. Pain is intermittent in the emergency department. Vitals are within normal limits (HR incorrectly documented as 17, was in 70s on initial recheck). Exam with right-sided CVA tenderness. With regards to flank pain, differential includes renal colic versus UTI versus musculoskeletal pain versus constipation. Plan for labs, UA, and spiral CT. With regards to chest pain that resolved this morning, given history of CAD, will obtain troponin x2. EKG is unchanged compared to last EKG from 2014. 01/13/19 01:58 [facility]ist mildly elevated, UA+ for blood - concern for renal colic CTAP pending at this time First trop negative, 2nd trop and CXR pending Case signed out to overnight team for further mgmt/dispo Heart Score/ECG Review #1 01/13/19 00:16 Twelve-lead EKG was performed and reviewed by me. Normal sinus rhythm, rate 63. Normal axis. No ST elevations. T wave inversions in lead III and aVF. When compared to EKG from 2014, no significant changes.
--- NOTE | 2019-01-13 02:05 | PDOC ---
*Physical Exam - Vital Signs Last Vital Signs Temp Pulse Resp BP Pulse Ox 99.4 F 17 L 16 166/92 99 01/12/19 20:52 01/12/19 20:52 01/12/19 20:52 01/12/19 20:52 01/12/19 20:52 ED Treatment Course - LABORATORY CBC & Chemistry Diagram: 01/12/19 23:45 01/12/19 23:45 - ADDITIONAL ORDERS Additional order review: Laboratory Results 01/12/19 01/12/19 01/12/19 23:45 23:45 23:45 Sodium 137 Potassium 4.5 Chloride 102 Carbon Dioxide 28 Anion Gap 6 L BUN 18.8 H Creatinine 1.6 H Est GFR (CKD-EPI)AfAm 51.63 Est GFR (CKD-EPI)NonAf 44.55 Random Glucose 139 H Calcium 9.0 Total Bilirubin 0.5 AST 13 L ALT 22 Alkaline Phosphatase 70 Creatine Kinase 135 Troponin I < 0.02 Total Protein 7.1 Albumin 4.1 Lipase Cancelled 48 L Urine Color Urine Appearance Urine pH Ur Specific [place] Urine Protein Urine Glucose (UA) Urine Ketones Urine Blood Urine Nitrite Urine Bilirubin Urine Urobilinogen Ur Leukocyte Esterase Urine WBC (Auto) Urine RBC (Auto) Urine Casts (Auto) U Epithel Cells (Auto) Urine Bacteria (Auto) 01/12/19 22:31 Sodium Potassium Chloride Carbon Dioxide Anion Gap BUN Creatinine Est GFR (CKD-EPI)AfAm Est GFR (CKD-EPI)NonAf Random Glucose Calcium Total Bilirubin AST ALT Alkaline Phosphatase Creatine Kinase Troponin I Total Protein Albumin Lipase Urine Color Yellow Urine Appearance Clear Urine pH 5.5 Ur Specific [place] 1.014 Urine Protein 3+ H Urine Glucose (UA) Negative Urine Ketones Negative Urine Blood 2+ H Urine Nitrite Negative Urine Bilirubin Negative Urine Urobilinogen 0.2 Ur Leukocyte Esterase Negative Urine WBC (Auto) 2 Urine RBC (Auto) 22 Urine Casts (Auto) 3 U Epithel Cells (Auto) 0.9 Urine Bacteria (Auto) 2.4 01/12/19 23:45 RBC 4.75 MCV 88.8 MCHC 33.2 RDW 13.4 MPV 9.2 Neutrophils % 73.9 Lymphocytes % 15.5 D Monocytes % 9.3 Eosinophils % 0.8 D Basophils % 0.5 - Medications Given in the ED: ED Medications Discontinued Medications Generic Name Dose Route Start Last Admin Trade Name Freq PRN Reason Stop Dose Admin Sodium Chloride 1,000 mls @ 1,000 mls/hr 01/12/19 21:52 01/12/19 23:54 Normal Saline - IV 01/12/19 22:51 1,000 mls/hr ASDIR STA Administration Morphine Sulfate 4 mg 01/12/19 21:52 01/12/19 23:53 Morphine Injection - IVPUSH 01/12/19 21:53 4 mg ONCE ONE Administration Medical Decision Making - Medical Decision Making 01/13/19 02:[address] MAYERS. Will f/u CT read, 2nd trop, likely dc home afterwards. 01/13/19 04:42 2nd trop negative. Will f/u CT scan, consider d/c home after. 01/13/19 05:19 CT scan with mild R ureter dilation, mild surrounding free fluid around the ureter and renal pelvis concerning for possible passed stone vs pyelo. For this patient, more likely passed stone. No current ureteric stone seen, however, cannot entirely rule out. Patient will be admitted for MANNY and ureteric dilation. Discharge - Discharge Information Problems reviewed: Yes Clinical Impression/Diagnosis: Flank pain, Microscopic hematuria, Ureteric dilatation, right, MANNY (acute kidney injury) Constipation Qualifiers: Constipation type: unspecified constipation type Qualified Code(s): K59.00 - Constipation, unspecified Condition: Stable - Admission Yes - Additional Discharge Information Prescriptions: Magnesium Citrate [Citroma -] 195 ml PO ONCE #1 bottle - Follow up/Referral Referrals: Bal Phillips MD [Primary Care Provider] - - Patient Discharge Instructions Patient Printed Discharge Instructions: DI for Constipation, DI for Hematuria Additional Instructions: Hoy fue evaluado por dolor en el pecho, dolor de espalda y estreimiento. Ally anlisis de norma muestran que tiene pequeas cantidades de norma en la orina y signos de lesin en el rin, lo que probablemente se deba a ruano quiste renal. Ally anlisis de norma no muestran evidencia de anemia, infeccin o anormalidades electrolticas. Ruano tomografa computarizada de ally riones muestra: Para ruano estreimiento, tome el medicamento que le hemos recetado, llamado Citroma, para ruano estreimiento. Bbalo en un lugar donde tenga acceso a un zack y recuerde beber muchos lquidos y rehidratarse despus de vaciar los intestinos. Shannan un seguimiento con ruano mdico de atencin primaria en los prximos 3 valentino para recibir ms atencin. Si experimenta un dolor de espalda que empeora, no puede orinar, no puede comer ni beber, tiene fiebre, nuseas, vmitos o dolor extremo, regrese a la elisha de emergencias. Para el estreimiento, consulte a ruano mdico de cabecera. Today you were evaluated for chest pain, back pain, and constipation. Your blood labs show that you have small amounts of blood in your urine and signs of injury to your kidney, which is likely due to your renal cyst. Your blood labs do not show any evidence of anemia, infection, or electrolyte abnormalities. Your CT scan of your kidneys shows: For your constipation, please take the medication we have prescribed, called Citroma, for your constipation. Drink it in a place where you have access to a restroom, and remember to drink a lot of fluids and rehydrate after you empty your bowels. Please follow-up with your primary doctor in the next 3 days for further care. If you experience worsening back pain, become unable to urinate, become unable to eat or drink, have fever, nausea, vomiting, or extreme pain, please return to the emergency room. For constipation, please see your primary doctor. - Post Discharge Activity
--- NOTE | 2019-01-13 05:58 | PN ---
Teaching Attending Note Name of Resident: Oksana Foster ATTENDING PHYSICIAN STATEMENT I saw and evaluated the patient. I reviewed the resident's note and discussed the case with the resident. I agree with the resident's findings and plan as documented. SUBJECTIVE: Patient is a 63 year old man with a PMH of HTN, CAD (s/p 3 stents in 1999), Bladder cancer, Kidney stone (lithotripsy 15 years ago), NIDDM and HLD who presents to the ER for Right flank pain for 6 days. Patient notes he had dark urine yesterday. Patient was seen here in the ER on 01/07/19 and was told to follow up with Urology. However, patient could not follow up with Urology due to insurance problems. Patient notes he acosta chest pressure this morning, that felt different from his previous [place]. Patient not complaining of chest pain currently. When asked for more details about chest pain this morning, he states "that's not bothering me, I'm more concerned about this pain." The patient denies shortness of breath, headache, weakness/numbness and dizziness. Denies fever, chills, cough, nausea, vomiting, diarrhea but has had constipation for 7 days. Denies dysuria, frequency, urgency. Denies urgency. Questionable history of prior ER evaluation for "renal mass". Has FH of kidney stone. OBJECTIVE: Alert Vital Signs Period Temp Pulse Resp BP Sys/Bassett Pulse Ox Last 24 Hr 99.4 F 17-56 16-20 159-168/90-97 97-99 HEENT: No Jaundice, eye redness or discharge, PERRLA, EOMI. Normocephalic, atraumatic. External ears are normal and hearing is grossly intact. No nasal discharge. Neck: Supple, nontender. No palpable adenopathy or thyromegaly. No JVD Chest: Good effort. Clear to auscultation and percussion. Heart: Regular. No S3, rub or murmur Abdomen: Not distended, soft, nontender and no HSM. No rebound or guarding. Normal bowel sounds. Ext: Peripheral pulses intact. No leg edema. Skin: Warm and dry. No petechiae, rash or ecchymosis. Neuro: Alert. Oriented x3. CN 2-12 grossly intact. Sensation grossly intact in all four extremities and DTR are symmetric. Psych: Appropriate mood and affect. Good insight. Home Medications Medication Instructions Recorded Aspirin 81 mg PO DAILY 01/07/19 Atorvastatin Ca [Lipitor] 40 mg PO HS 01/07/19 Ibuprofen [Motrin -] 600 mg PO QID #30 tablet 01/07/19 Linagliptin [Tradjenta] 5 mg PO DAILY 01/07/19 Lisinopril [Prinivil] 20 mg PO DAILY 01/07/19 Metoprolol Succinate [Toprol Xl] 25 mg PO DAILY 01/07/19 Omeprazole 40 mg PO DAILY 01/07/19 Oxybutynin Chloride [Oxybutynin 15 mg PO DAILY 01/07/19 Chloride ER] Magnesium Citrate [Citroma -] 195 ml PO ONCE #1 bottle 01/13/19 Omeprazole/Sodium Bicarbonate 1 each PO DAILY 01/13/19 [Omeprazole-Bicarb 40-1,680 Pkt] Polyethylene Glycol 3350 [Miralax 17 gm PO DAILY 01/13/19 (For Daily Use) -] Abnormal Lab Results 01/12/19 01/12/19 22:31 23:45 Anion Gap 6 L BUN 18.8 H Creatinine 1.6 H Random Glucose 139 H AST 13 L Lipase 48 L Urine Protein 3+ H Urine Blood 2+ H ASSESSMENT AND PLAN: 1. MANNY/Right ureteric dilation/?Passed kidney stone - CT scan with mild right ureter dilation, mild surrounding free fluid around the ureter and renal pelvis concerning for possible passed stone vs pyelonephritis; mild right hydronephrosis. Likely that patient passed the stone. No stone was seen on CT scan. Patient has risk factors for CKD/MANNY including HTN, NIDDM and NSAID use. Has hematuria and proteinuria. Will consult nephrology for further workup. and avoid nephrotoxic agents such as NSAIDS, aminoglycosides, contrast dyes and certain Alternative medicine products. Will hydrate gently, give flomax, tlenol for pain, monitor urine output, get PTH and phosphate levels. Consult Urology. CXR shows poor inspiratory effort, cardiomegaly, left pleural effusion and pulmonary congestion. EKG shows NSR with t wave inversion in III and aVF. Initial troponin is negative - will get ECHO. Will continue comprehensive care for all of patients comorbid conditions. Will treat constipation with Fleet enema and miralax. 2. DM For now, we will hold the home diabetes drugs and implement sliding scale insulin regimen. Provide comprehensive diabetes care with patient teaching and counseling about the importance of adherence to prescribed diabetes regimen, euglycemia, eye care and foot care. 3. Obesity Counseled on the risks associated with obesity. Will provide patient all the necessary assistance, counseling and positive reinforcement to facilitate weight loss. Consult broadcast checker. 4. Uncontrolled Hypertension - Restart suitable outpatient antihypertensive drugs when clinically appropriate. Revise regimen to ensure [id number] excellent BP control and counseling services director patient on the injurious effects of uncontrolled hypertension. Nonpharmacologic measures to control hypertension like weight loss, salt restriction and exercise discussed. Importance of adherence to treatment regimen and attainment of normotension emphasized. 5. DVT prophylaxis - Heparin 5000 u sq tid. 6. Advance directives - Full code
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
[2019-01-13] MEDS ORDERED: ACETAMINOPHEN 325 MG TABLET (FP) PO PRN (07:34)
[2019-01-13] MEDS ORDERED: POLYETHYLENE GLYCOL 3350 119 GM BTL PO ONE (07:34)
[2019-01-13] MEDS ORDERED: SODIUM CHLORIDE 1,000 ML IV SCH (07:45)
[2019-01-13] MEDS ORDERED: SODIUM PHOSPHATE/NA BIPHOS 133 ML ENEMA PR ONE ×2 (07:45→12:51)
[2019-01-13] MEDS ORDERED: TAMSULOSIN HCL 0.4 MG CAP PO SCH (08:30)
[2019-01-13 08:41] VITALS: BP 149/81; PULSE 59; TEMP 97.5
[2019-01-13] MEDS ORDERED: MORPHINE SULFATE 2 MG/ML VIAL IVPUSH PRN (11:08)
[2019-01-13] MEDS: INSULIN SLIDING SCALE (NOVOLOG) 1 VIAL SQ SCH ×2 (11:36→17:38)
--- NOTE | 2019-01-13 12:05 | CON.GU ---
Consult Consult Specialty:: urology Reason for Consultation:: right renal colic - History of Present Illness Chief Complaint: right renal colic History of Present Illness: Patient is a 63 year old male with history of renal stone with 7 day history of right flank pain. Patient denies recent nausea vomiting, fever,chills, or gross hematuria. Patient describes dark urine. Patient has a long standing history of prostatism. - History Source History Provided By: Patient Limitations to Obtaining History: No Limitations - Past Medical History Cardio/Vascular: Yes: CAD, CHF, Hyperlipdemia, [place] - Past Surgical History Past Surgical History: Yes: Stent - Alcohol/Substance Use Hx Alcohol Use: No - Smoking History Smoking history: Never smoked Have you smoked in the past 12 months: No Aproximately how many cigarettes per day: 0 Home Medications - Allergies Allergies/Adverse Reactions: Allergies Allergy/AdvReac Type Severity Reaction Status Date / Time No Known Allergies Allergy Verified 01/07/19 05:15 - Home Medications Home Medications: Ambulatory Orders Aspirin 81 mg PO DAILY 01/07/19 Atorvastatin Ca [Lipitor] 40 mg PO HS 01/07/19 Ibuprofen [Motrin -] 600 mg PO QID #30 tablet 01/07/19 Linagliptin [Tradjenta] 5 mg PO DAILY 01/07/19 Lisinopril [Prinivil] 20 mg PO DAILY 01/07/19 Metoprolol Succinate [Toprol Xl] 25 mg PO DAILY 01/07/19 Omeprazole 40 mg PO DAILY 01/07/19 Oxybutynin Chloride [Oxybutynin Chloride ER] 15 mg PO DAILY 01/07/19 Magnesium Citrate [Citroma -] 195 ml PO ONCE #1 bottle 01/13/19 Omeprazole/Sodium Bicarbonate [Omeprazole-Bicarb 40-1,680 Pkt] 1 each PO DAILY 01/13/19 Polyethylene Glycol 3350 [Miralax (For Daily Use) -] 17 gm PO DAILY 01/13/19 Physical Exam- Vital Signs: Vital Signs Temperature 97.5 F L 01/13/19 08:09 Pulse Rate 59 L 01/13/19 08:09 Respiratory Rate 18 01/13/19 08:09 Blood Pressure 149/81 01/13/19 08:09 O2 Sat by Pulse Oximetry (%) 98 01/13/19 07:36 Constitutional: Yes: Well Nourished, No Distress, Calm Eyes: Yes: WNL, Conjunctiva Clear, EOM Intact HENT: Yes: WNL, Atraumatic, Normocephalic Neck: Yes: WNL, Supple, Trachea Midline Cardiovascular: Yes: Regular Rate and Rhythm Respiratory: Yes: Regular Gastrointestinal: Yes: WNL, Normal Bowel Sounds, Soft Renal/: Yes: WNL Kidneys: Yes: WNL Pelvis: Yes: WNL Testicles: Yes: WNL Scrotum: Yes: WNL Penis: Yes: WNL Prostate Exam: Yes: Deferred Extremities: Yes: WNL Integumentary: Yes: WNL Neurological: Yes: WNL, Alert, Oriented Labs: CBC, BMP 01/12/19 23:45 01/12/19 23:45 Imaging - Results Cat Scan: Report Reviewed (patient with mild right hydro with minimal perinephric fluid; no ureteral stones identified/consistent with recently passed stone) Assessment/Plan imp bph right renal colic mild right hydronephrosis with ureteral fullness consistent with recently passed stone plan observe maintain patient on flomas for bph
--- NOTE | 2019-01-13 12:49 | PN ---
Progress Note, Physician - Current Medication List Current Medications: Active Medications Acetaminophen (Tylenol -) 650 mg PO Q4H PRN PRN Reason: PAIN LEVEL 1-5 Atorvastatin Calcium (Lipitor -) 40 mg PO HS KENISHA Heparin Sodium (Porcine) (Heparin -) 5,000 unit SQ TID [facility] Sodium Chloride (Normal Saline -) 1,000 mls @ 83 mls/hr IV ASDIR [facility] Last Admin: 01/13/19 08:58 Dose: 83 mls/hr Insulin Aspart (Novolog Vial Sliding Scale -) 1 vial SQ ACHS [facility]; Protocol Last Admin: 01/13/19 11:36 Dose: Not Given Morphine Sulfate (Morphine Sulfate) 2 mg IVPUSH Q4H PRN PRN Reason: PAIN LEVEL 6-10 Tamsulosin HCl (Flomax -) 0.4 mg PO DAILY@0830 [facility] Last Admin: 01/13/19 08:58 Dose: 0.4 mg - Objective Vital Signs: Vital Signs Temperature 97.5 F L 01/13/19 08:09 Pulse Rate 59 L 01/13/19 08:09 Respiratory Rate 18 01/13/19 08:09 Blood Pressure 149/81 01/13/19 08:09 O2 Sat by Pulse Oximetry (%) 98 01/13/19 07:36 Labs: CBC, BMP 01/12/19 23:45 01/12/19 23:45
[2019-01-13] MEDS ORDERED: MAGNESIUM CITRATE 300 ML BOTTLE PO ONE (12:51)
[2019-01-13] MEDS ORDERED: DOCUSATE SODIUM 100 MG CAPSULE (FP) PO PRN (12:52)
--- NOTE | 2019-01-13 12:59 | DS ---
Physical Examination Vital Signs: Vital Signs Temperature 97.5 F L 01/13/19 08:09 Pulse Rate 59 L 01/13/19 08:09 Respiratory Rate 18 01/13/19 08:09 Blood Pressure 149/81 01/13/19 08:09 O2 Sat by Pulse Oximetry (%) 98 01/13/19 07:36 Findings/Remarks: CLEARED BY FOR DISCHARGE Constitutional: Yes: No Distress Eyes: Yes: WNL HENT: Yes: WNL Neck: Yes: WNL Cardiovascular: Yes: WNL Respiratory: Yes: WNL Gastrointestinal: Yes: WNL Renal/: Yes: WNL Musculoskeletal: Yes: WNL Extremities: Yes: WNL Edema: No Peripheral Pulses WNL: Yes Integumentary: Yes: WNL Wound/Incision: Yes: Clean/Dry Neurological: Yes: WNL ...Motor Strength: WNL Psychiatric: Yes: WNL Labs: CBC, BMP 01/12/19 23:45 01/12/19 23:45 Discharge Summary Problems reviewed: Yes Reason For Visit: ACUTE KIDNEY INJURY, DILATION OF RIGHT URETER Current Active Problems MANNY (acute kidney injury) (Acute) Constipation (Acute) Flank pain (Acute) Microscopic hematuria (Acute) Ureteric dilatation, right (Acute) Procedures: Principal: CT SCAN Other Procedures: LABS Hospital Course: ADMITTED ACUTE RENAL COLIC, PATIENT PASSED RENAL STONE IN URINE AND WORKUP COMPLETED HERE AND F/U OUTPATIENT WITH DR CORRIGAN Goals: SEE DR GARCIA IN [address] ASTORGA IN 2-3 DAYS Condition: Stable - Instructions Diet, Activity, Other Instructions: SEE DR ASTORGA IN 2-3 DAYS Referrals: Bal Astorga MD [Primary Care Provider] - Disposition: HOME - Home Medications Comprehensive Discharge Medication List: Ambulatory Orders Aspirin 81 mg PO DAILY 01/07/19 Atorvastatin Ca [Lipitor] 40 mg PO HS 01/07/19 Ibuprofen [Motrin -] 600 mg PO QID #30 tablet 01/07/19 Linagliptin [Tradjenta] 5 mg PO DAILY 01/07/19 Lisinopril [Prinivil] 20 mg PO DAILY 01/07/19 Metoprolol Succinate [Toprol Xl] 25 mg PO DAILY 01/07/19 Omeprazole 40 mg PO DAILY 01/07/19 Oxybutynin Chloride [Oxybutynin Chloride ER] 15 mg PO DAILY 01/07/19 Acetaminophen [Tylenol .Regular Strength -] 650 mg PO Q4H PRN tablet 01/13/19 Docusate Sodium [Colace -] 100 mg PO Q8H PRN #30 capsule 01/13/19 Magnesium Citrate [Citroma -] 195 ml PO ONCE #1 bottle 01/13/19 Omeprazole/Sodium Bicarbonate [Omeprazole-Bicarb 40-1,680 Pkt] 1 each PO DAILY 01/13/19 Polyethylene Glycol 3350 [Miralax 119 gm Btl -] 17 gm PO DAILY 01/13/19 Tamsulosin HCl [Flomax -] 0.4 mg PO DAILY@0830 #30 cap.er.24h 01/13/19 Prescription Drug Monitoring Program (I-STOP) results: I-STOP not reviewed
[2019-01-13 13:45] VITALS: BMI 35.2
[2019-01-13] MEDS ORDERED: HEPARIN NA (PORCINE) 5,000 UNITS/ML 1ML VIAL SQ SCH (14:00)
--- NOTE | 2019-01-13 14:58 | EKG ---
Test Reason : Blood Pressure : / mmHG Vent. Rate : 063 BPM Atrial Rate : 063 BPM P-R Int : 138 ms QRS Dur : 106 ms QT Int : 378 ms P-R-T Axes : 055 -01 003 degrees QTc Int : 386 ms NORMAL SINUS RHYTHM POSSIBLE LEFT ATRIAL ENLARGEMENT LEFT VENTRICULAR HYPERTROPHY INFERIOR INFARCT (CITED ON OR BEFORE 10-OCT-2010) ABNORMAL ECG WHEN COMPARED WITH ECG OF 11-MAR-2015 07:20, NO SIGNIFICANT CHANGE WAS FOUND Confirmed by Tiera Noland ([id number]) on 01/13/2019 2:57:41 PM Referred By: Confirmed By:Tiera Noland
[2019-01-13] MEDS ORDERED: ATORVASTATIN CA 40 MG TABLET (FP) PO SCH (22:00)
--- NOTE | 2019-01-13 22:04 | CON.NEP ---
Consult Consult Specialty:: Nephrology Referred by:: dr thomas Reason for Consultation:: darrell - History of Present Illness Chief Complaint: r flank pain/hematuria History of Present Illness: 63 y/o admitted with r flank pain and dark urine/hematuria seen by gu - recently passed stone also had constipation and chestpain in the days prior to admission CAD R Renal cyst DM HLD s creat 1.6 from 1.2 baseline s creat was 1.4 in 2011 - Past Medical History Cardio/Vascular: Yes: CAD, CHF, Hyperlipdemia, [place] - Past Surgical History Past Surgical History: Yes: Stent - Alcohol/Substance Use Hx Alcohol Use: No - Smoking History Smoking history: Never smoked Have you smoked in the past 12 months: No Aproximately how many cigarettes per day: 0 Home Medications - Allergies Allergies/Adverse Reactions: Allergies Allergy/AdvReac Type Severity Reaction Status Date / Time No Known Allergies Allergy Verified 01/07/19 05:15 - Home Medications Home Medications: Ambulatory Orders Aspirin 81 mg PO DAILY 01/07/19 Atorvastatin Ca [Lipitor] 40 mg PO HS 01/07/19 Ibuprofen [Motrin -] 600 mg PO QID #30 tablet 01/07/19 Linagliptin [Tradjenta] 5 mg PO DAILY 01/07/19 Lisinopril [Prinivil] 20 mg PO DAILY 01/07/19 Metoprolol Succinate [Toprol Xl] 25 mg PO DAILY 01/07/19 Omeprazole 40 mg PO DAILY 01/07/19 Oxybutynin Chloride [Oxybutynin Chloride ER] 15 mg PO DAILY 01/07/19 Acetaminophen [Tylenol .Regular Strength -] 650 mg PO Q4H PRN tablet 01/13/19 Docusate Sodium [Colace -] 100 mg PO Q8H PRN #30 capsule 01/13/19 Magnesium Citrate [Citroma -] 195 ml PO ONCE #1 bottle 01/13/19 Omeprazole/Sodium Bicarbonate [Omeprazole-Bicarb 40-1,680 Pkt] 1 each PO DAILY 01/13/19 Polyethylene Glycol 3350 [Miralax 119 gm Btl -] 17 gm PO DAILY 01/13/19 Tamsulosin HCl [Flomax -] 0.4 mg PO DAILY@0830 #30 cap.er.24h 01/13/19 Nephrology Consult - Height Height: 5 ft 6 in - Weight Weight: 218 lb - BMI Body Mass Index (BMI): 35.2 - Lab Results CBC,BMP: CBC, BMP 01/12/19 23:45 01/12/19 23:45 Anion Gap: Anion Gap Anion Gap 6 MMOL/L (8-16) L 01/12/19 23:45 - Physical Examination Vital Signs: Vital Signs Temperature 97.5 F L 01/13/19 08:09 Pulse Rate 59 L 01/13/19 08:09 Respiratory Rate 18 01/13/19 08:09 Blood Pressure 149/81 01/13/19 08:09 O2 Sat by Pulse Oximetry (%) 98 01/13/19 07:36 Assessment/Plan darrell s/p flank pain and gross hematuria per gu this is a passed stone mild hydro still present in r kidney BPH- on flomax encourage fluids follw labs for s creat trends
== END 2019-01-13 20:50 | disposition home or self-care (01) | DRG 694 ==
LOC: JER 20:37 → JERBED 01-13 05:23 → J6S 01-13 07:57
PROVIDERS: ADMIT Family Medicine; ATTEND Family Medicine
DX: N13.1 Hydronephrosis with ureteral stricture, not elsewhere classified (principal); N17.9 Acute kidney failure, unspecified; K59.00 Constipation, unspecified; R31.29 Other microscopic hematuria; E78.5 Hyperlipidemia, unspecified; E11.9 Type 2 diabetes mellitus without complications; I25.10 Atherosclerotic heart disease of native coronary artery without angina pectoris; Z98.61 Coronary angioplasty status; E66.9 Obesity, unspecified; Z68.35 Body mass index [BMI] 35.0-35.9, adult; I10 Essential (primary) hypertension
CPT/HCPCS: 36415; 71045-TC-FY; 74176-TC; 80053; 81003; 82550; 82962; 83690; 84484; 85025; 87086; 93005; 93010; 99285-25; J7030

== ENCOUNTER 2021-05-15 15:51 | Observation (INO) | payer MEDICARE, OTHER ==
[2021-05-15 15:59] VITALS: BMI 34.3
[2021-05-15 18:02] LABS: BASO % 0.8 % (0-2.0); EOS % 0.9 % (0-4.5); HEMATOCRIT 44.1 % (35.4-49); HEMOGLOBIN 14.6 GM/dL (11.7-16.9); LYMPH % 30.3 % (8-40); MCH 29.7 pg (25.7-33.7); MCHC 33.1 g/dl (32.0-35.9); MEAN CELL VOLUME 89.5 fl (80-96); MEAN PLT VOLUME 9.6 fl (7.5-11.1); MONO % 10.8 % (3.8-10.2); NEUT % 57.2 % (42.8-82.8); PLATELET COUNT 195 10^3/uL (134-434); RBC 4.92 M/mm3 (4.00-5.60); RDW 14.1 % (11.9-15.9); WHITE BLOOD COUNT 5.5 K/mm3 (4.0-10.0)
[2021-05-15 18:30] LABS: CALCIUM 9.1 mg/dL (8.5-10.1)
[2021-05-15 18:31] LABS: BLOOD UREA NITROGEN 22.2 mg/dL (7-18)
[2021-05-15 18:34] LABS: CREATININE 1.2 mg/dL (0.55-1.3)
[2021-05-15 18:37] LABS: BILIRUBIN,TOTAL 0.2 mg/dL (0.2-1); TOT PROT 6.9 g/dl (6.4-8.2)
[2021-05-15 20:04] LABS: N-TERMINAL BNP 25.2 pg/ml (5-125)
[2021-05-15] MEDS ORDERED: ASPIRIN 81 MG CHEWABLE TABLETS PO ONE (20:34)
[2021-05-15] MEDS ORDERED: ASPIRIN 81 MG CHEWABLE TABLETS ONE (20:48)
[2021-05-15] MEDS ORDERED: ZOLPIDEM TARTRATE 5 MG TABLET PO PRN (21:36)
[2021-05-15] MEDS ORDERED: ATORVASTATIN CA 40 MG TABLET (FP) PO SCH (22:00)
[2021-05-16] MEDS ORDERED: glipiZIDE 5 MG TABLET (FP) PO SCH (07:00)
[2021-05-16 08:14] LABS: BASO % 0.7 % (0-2.0); EOS % 0.9 % (0-4.5); HEMATOCRIT 41.2 % (35.4-49); HEMOGLOBIN 13.6 GM/dL (11.7-16.9); LYMPH % 31.2 % (8-40); MCH 29.3 pg (25.7-33.7); MCHC 32.9 g/dl (32.0-35.9); MEAN CELL VOLUME 89.1 fl (80-96); MEAN PLT VOLUME 9.7 fl (7.5-11.1); MONO % 9.9 % (3.8-10.2); NEUT % 57.3 % (42.8-82.8); PLATELET COUNT 190 10^3/uL (134-434); RBC 4.62 M/mm3 (4.00-5.60); RDW 13.8 % (11.9-15.9); WHITE BLOOD COUNT 4.4 K/mm3 (4.0-10.0)
[2021-05-16 08:16] LABS: CALCIUM 8.6 mg/dL (8.5-10.1)
[2021-05-16 08:17] LABS: BLOOD UREA NITROGEN 21.2 mg/dL (7-18); MAGNESIUM 1.9 mg/dL (1.8-2.4)
[2021-05-16 08:20] LABS: CREATININE 1.2 mg/dL (0.55-1.3)
[2021-05-16] MEDS ORDERED: TAMSULOSIN HCL 0.4 MG CAP PO SCH (08:30)
[2021-05-16] MEDS ORDERED: ASPIRIN 81 MG CHEWABLE TABLETS PO SCH (10:00)
[2021-05-16] MEDS ORDERED: PANTOPRAZOLE 40 MG TABLET PO SCH (10:00)
[2021-05-16] MEDS ORDERED: metoPROLOL SUCCINATE 25 MG TAB.SR.24H (FP) PO SCH (10:00)
[2021-05-16] MEDS ORDERED: SOLIFENACIN SUCCINATE 5 MG TAB PO SCH (10:00)
[2021-05-16] MEDS ORDERED: PATIENT'S OWN MEDICATION (NON-FORMULARY) (Oxybutynin Chloride [Oxybutynin Chloride Er] 15 PO SCH (10:00)
[2021-05-16] MEDS ORDERED: LISINOPRIL 20 MG TABLET PO SCH (10:00)
[2021-05-16 11:01] VITALS: BP 141/88; PULSE 65; TEMP 98.4
== END 2021-05-16 13:01 | disposition home or self-care (01) ==
LOC: JER 15:51 → JERBED 19:00 → J4S 05-16 01:51
PROVIDERS: ADMIT Internal Medicine; ATTEND Family Medicine
DX: I25.10 Atherosclerotic heart disease of native coronary artery without angina pectoris (principal); I11.9 Hypertensive heart disease without heart failure; R01.1 Cardiac murmur, unspecified; R34 Anuria and oliguria; E66.8 Other obesity; Z68.34 Body mass index [BMI] 34.0-34.9, adult; Z85.51 Personal history of malignant neoplasm of bladder; Z95.5 Presence of coronary angioplasty implant and graft; I21.3 ST elevation (STEMI) myocardial infarction of unspecified site; E11.9 Type 2 diabetes mellitus without complications; N20.0 Calculus of kidney; E78.5 Hyperlipidemia, unspecified
CPT/HCPCS: 36415; 71046-TC-FY; 80048; 80053; 80061; 82550; 82962; 83036; 83735; 83880; 84443; 84484; 85025; 93005; 93010; 99285-25; C9803; G0378; U0003; U0005

== ENCOUNTER 2023-09-16 01:29 | Inpatient (IN) | payer MEDICARE, OTHER ==
[2023-09-16] MEDS ORDERED: ONDANSETRON 4 MG/2 ML VIAL ONE ×2 (02:09→11:45)
[2023-09-16 02:24] LABS: BASO % 0.4 % (0-2.0); EOS % 0.3 % (0-4.5); HEMATOCRIT 42.4 % (35.4-49); HEMOGLOBIN 14.2 GM/dL (11.7-16.9); LYMPH % 21.7 % (8-40); MCH 29.8 pg (25.7-33.7); MCHC 33.4 g/dl (32.0-35.9); MEAN CELL VOLUME 89.3 fl (80-96); MEAN PLT VOLUME 8.8 fl (7.5-11.1); MONO % 10.7 % (3.8-10.2); NEUT % 66.9 % (42.8-82.8); PLATELET COUNT 204 10^3/uL (134-434); RBC 4.75 M/mm3 (4.00-5.60); RDW 14.1 % (11.9-15.9); WHITE BLOOD COUNT 7.8 K/mm3 (4.0-10.0)
[2023-09-16] MEDS: morphine CARPU-JECT 2 MG/1 ML DISP.SYRIN IVPUSH ONE ×3 (02:24→05:12)
[2023-09-16] MEDS: SODIUM CHLORIDE 0.9% 500 ML INFUS.BAG IV ONE (02:24)
[2023-09-16 02:25] LABS: INR 0.99 (0.83-1.09); PROTHROMBIN TIME (PATIENT) 11.2 SEC (9.7-13.0)
[2023-09-16] MEDS: ONDANSETRON 4 MG/2 ML VIAL IVPUSH ONE ×2 (02:25→11:51)
[2023-09-16 02:28] LABS: ACTIVATED PTT 30.5 SECONDS (25.2-36.5)
[2023-09-16 02:32] LABS: POTASSIUM 3.9 mmol/L (3.5-5.1)
[2023-09-16 02:35] LABS: BLOOD UREA NITROGEN 25.9 mg/dL (7-18); MAGNESIUM 1.8 mg/dL (1.8-2.4)
[2023-09-16 02:38] LABS: CREATININE 1.5 mg/dL (0.55-1.3)
[2023-09-16 02:39] LABS: TOT PROT 6.5 g/dl (6.4-8.2)
[2023-09-16 02:40] LABS: BILIRUBIN,TOTAL 0.5 mg/dL (0.2-1)
[2023-09-16] MEDS ORDERED: TAMSULOSIN HCL 0.4 MG CAP ONE (04:18)
[2023-09-16] MEDS: TAMSULOSIN HCL 0.4 MG CAP PO ONE (04:23)
[2023-09-16 04:39] LABS: PH,URINE 6.5 (5.0-8.0); URINE APPEARANCE CLEAR; URINE BILIRUBIN NEGATIVE (NEGATIVE); URINE COLOR YELLOW; URINE GLUCOSE (UA) NEGATIVE (NEGATIVE); URINE KETONE NEGATIVE (NEGATIVE); URINE LEUK ESTERASE NEGATIVE (NEGATIVE); URINE NITRITE NEGATIVE (NEGATIVE); URINE PROTEIN NEGATIVE (NEGATIVE); URINE UROBILINOGEN 0.2 mg/dL (0.2-1.0)
[2023-09-16] MEDS ORDERED: morphine SULFATE 4 MG/ML VIAL ONE ×2 (07:46→09:33)
[2023-09-16] MEDS: morphine CARPU-JECT 4 MG/1 ML DISP.SYRIN IVPUSH ONE (09:46)
[2023-09-16] MEDS ORDERED: MORPHINE SULFATE 2 MG/ML SYRINGE IVPUSH PRN (12:41)
[2023-09-16] MEDS: POTASSIUM CHLORIDE 10 MEQ in SODIUM CHLORIDE 0.45% 1,000 ML IVPB SCH (15:59)
[2023-09-16] MEDS: INSULIN ASPART SLIDING SCALE (NOVOLOG) 1 VIAL SQ SCH (17:01)
[2023-09-16] MEDS ORDERED: PANTOPRAZOLE 40 MG TABLET PO ONE (17:04)
[2023-09-16] MEDS: PANTOPRAZOLE 40 MG TABLET PO SCH (17:07)
[2023-09-16 18:29] VITALS: BMI 28.8
[2023-09-16] MEDS: ACETAMINOPHEN 1000 MG/100 ML BAG IVPB PRN (19:09)
[2023-09-16] MEDS: TAMSULOSIN HCL 0.4 MG CAP PO SCH (22:10)
[2023-09-16] MEDS: ATORVASTATIN CA 40 MG TABLET (FP) PO SCH (22:11)
[2023-09-17] MEDS: ONDANSETRON 4 MG/2 ML VIAL IVPUSH PRN (05:29)
[2023-09-17] MEDS: metoPROLOL SUCCINATE 25 MG TAB.SR.24H (FP) PO SCH (09:37)
[2023-09-17 10:31] LABS: BASO % 0.1 % (0-2.0); EOS % 0.2 % (0-4.5); HEMATOCRIT 38.6 % (35.4-49); HEMOGLOBIN 13.4 GM/dL (11.7-16.9); LYMPH % 7.6 % (8-40); MCH 30.6 pg (25.7-33.7); MCHC 34.8 g/dl (32.0-35.9); MEAN CELL VOLUME 87.9 fl (80-96); MEAN PLT VOLUME 9.2 fl (7.5-11.1); MONO % 9.1 % (3.8-10.2); PLATELET COUNT 165 10^3/uL (134-434); RBC 4.39 M/mm3 (4.00-5.60); RDW 13.9 % (11.9-15.9); WHITE BLOOD COUNT 8.8 K/mm3 (4.0-10.0)
[2023-09-17 10:50] LABS: POTASSIUM 3.7 mmol/L (3.5-5.1)
[2023-09-17 10:56] LABS: BLOOD UREA NITROGEN 23.1 mg/dL (7-18); CALCIUM 8.5 mg/dL (8.5-10.1); MAGNESIUM 1.6 mg/dL (1.8-2.4)
[2023-09-17 10:59] LABS: CREATININE 1.8 mg/dL (0.55-1.3); PHOSPHOROUS 3.6 mg/dL (2.5-4.9)
[2023-09-17] MEDS: MELATONIN 5 MG TABLETS PO ONE (21:06)
[2023-09-18] MEDS: ACETAMINOPHEN 1000 MG/100 ML BAG IVPB ONE (21:01)
[2023-09-18] MEDS: MELATONIN 5 MG TABLETS PO ONE (21:02)
[2023-09-18] MEDS: CEFAZOLIN 1 GM in DEXTROSE 5%-WATER - 50 ML IVPB SCH (22:45)
[2023-09-19] MEDS: metoPROLOL SUCCINATE 25 MG TAB.SR.24H (FP) PO SCH (08:29)
[2023-09-19] MEDS: POLYETHYLENE GLYCOL (HEALTHYLAX) 3350 17 GM PACKET PO SCH ×2 (10:19→21:23)
[2023-09-19] MEDS: amLODIPine BESYLATE 5 MG TABLET (FP) PO SCH (10:37)
[2023-09-19] MEDS: ACETAMINOPHEN 1000 MG/100 ML BAG IVPB PRN (11:25)
[2023-09-19] MEDS: amLODIPine BESYLATE 5 MG TABLET (FP) PO ONE (14:51)
[2023-09-19] MEDS ORDERED: MIDAZOLAM HCL 2 MG/2 ML SINGLE DOSE VIAL ONE (18:27)
[2023-09-19] MEDS ORDERED: FENTANYL CITRATE/PF 50 MCG/ML VIAL ONE (18:34)
[2023-09-19] MEDS ORDERED: PROPOFOL 20 ML ONE (18:34)
[2023-09-19] MEDS: ceFAZolin SODIUM 1 GM VIAL IVPB ONE (18:40)
[2023-09-19] MEDS: ACETAMINOPHEN 1000 MG/100 ML BAG IVPB ONE (19:01)
[2023-09-19] MEDS ORDERED: ACETAMINOPHEN 1000 MG/100 ML BAG IVPB PRN (19:25)
[2023-09-19] MEDS ORDERED: ONDANSETRON 4 MG/2 ML VIAL IVPUSH PRN (19:25)
[2023-09-19] MEDS: LACTATED RINGERS SOLUTION 1,000 ML IV SCH ×2 (19:25→22:25)
[2023-09-19] MEDS: TAMSULOSIN HCL 0.4 MG CAP PO SCH (21:22)
[2023-09-19] MEDS: ATORVASTATIN CA 40 MG TABLET (FP) PO SCH (21:23)
[2023-09-19] MEDS: INSULIN ASPART SLIDING SCALE (NOVOLOG) 1 VIAL SQ SCH (21:29)
[2023-09-20] MEDS: CEFAZOLIN 1 GM in DEXTROSE 5%-WATER - 50 ML IVPB SCH (01:12)
[2023-09-20] MEDS: POTASSIUM CHLORIDE 10 MEQ in SODIUM CHLORIDE 0.45% 1,000 ML IVPB SCH (02:53)
[2023-09-20 07:48] VITALS: RESP 18
[2023-09-20] MEDS: amLODIPine BESYLATE 5 MG TABLET (FP) PO SCH (09:06)
[2023-09-20] MEDS: metoPROLOL SUCCINATE 25 MG TAB.SR.24H (FP) PO SCH (09:06)
[2023-09-20] MEDS: PANTOPRAZOLE 40 MG TABLET PO SCH (09:06)
[2023-09-20 10:27] LABS: POTASSIUM 4.1 mmol/L (3.5-5.1)
[2023-09-20 10:28] LABS: ALBUMIN 3.4 g/dl (3.4-5.0); CALCIUM 9.2 mg/dL (8.5-10.1)
[2023-09-20 10:32] LABS: CREATININE 1.6 mg/dL (0.55-1.3)
[2023-09-20 10:33] LABS: BILIRUBIN,TOTAL 0.7 mg/dL (0.2-1); TOT PROT 6.3 g/dl (6.4-8.2)
[2023-09-20 15:42] VITALS: BP 140/78; PULSE 78; TEMP 98
== END 2023-09-20 17:26 | disposition home or self-care (01) | DRG 661 ==
LOC: JER 01:29 → JERBED 05:41 → OBSVTOIN 12:42 → J5S 17:45
PROVIDERS: ADMIT Internal Medicine; ATTEND Internal Medicine
PROC: 0T778DZ Dilation of Left Ureter with Intraluminal Device, Via Natural or Artificial Opening Endoscopic (ICD-10-PCS; principal; 2023-09-19 14:00)
PROC: BT1FYZZ Fluoroscopy of Left Kidney, Ureter and Bladder using Other Contrast (ICD-10-PCS; 2023-09-19 14:00)
DX: N13.2 Hydronephrosis with renal and ureteral calculous obstruction (principal); E78.5 Hyperlipidemia, unspecified; E11.9 Type 2 diabetes mellitus without complications; I25.10 Atherosclerotic heart disease of native coronary artery without angina pectoris; I48.91 Unspecified atrial fibrillation; I50.9 Heart failure, unspecified; R11.0 Nausea; Z85.51 Personal history of malignant neoplasm of bladder
CPT/HCPCS: 36415; 74176-TC; 74178-TC; 76000-TC-FY; 80048; 80053; 81003; 82565; 82962; 83735; 84100; 84520; 85025; 85610; 85730; 86850; 86900; 86901; 87086; 94760; 99285-25; C1758; C2617; G0378; J0131; Q9967

== ENCOUNTER 2023-09-27 04:09 | Day surgery (SDC) | payer MEDICARE, OTHER ==
[2023-09-23 09:32] VITALS: BMI 29.3
[2023-09-27] MEDS ORDERED: ONDANSETRON 4 MG/2 ML VIAL ONE (07:41)
[2023-09-27] MEDS ORDERED: DEXAMETHASONE SOD PHOSPHATE 4 MG/1 ML VIAL ONE (07:41)
[2023-09-27] MEDS ORDERED: MIDAZOLAM HCL 2 MG/2 ML SINGLE DOSE VIAL ONE (07:56)
[2023-09-27] MEDS ORDERED: PROPOFOL 20 ML ONE (07:56)
[2023-09-27] MEDS: ceFAZolin SODIUM 1 GM VIAL IVPB ONE (08:05)
[2023-09-27] MEDS ORDERED: oxyCODONE HCL 5 MG TABLET PO PRN (08:35)
[2023-09-27] MEDS ORDERED: DEXTROSE 5%-0.45% SALINE 1,000 ML IV SCH (08:45)
[2023-09-27] MEDS ORDERED: ONDANSETRON 4 MG/2 ML VIAL IVPUSH PRN (09:27)
[2023-09-27 09:28] VITALS: RESP 16; TEMP 97.5
[2023-09-27] MEDS ORDERED: LACTATED RINGERS SOLUTION 1,000 ML IV SCH (09:30)
[2023-09-27 10:09] VITALS: BP 156/70; PULSE 72
== END 2023-09-27 10:13 | disposition home or self-care (01) ==
LOC: JASU-SURG 04:09
PROVIDERS: ATTEND Urology
PROC: 0TC78ZZ Extirpation of Matter from Left Ureter, Via Natural or Artificial Opening Endoscopic (ICD-10-PCS; principal; 2023-09-27 07:30)
PROC: 0T778DZ Dilation of Left Ureter with Intraluminal Device, Via Natural or Artificial Opening Endoscopic (ICD-10-PCS; 2023-09-27 07:30)
DX: N20.1 Calculus of ureter (principal); N13.5 Crossing vessel and stricture of ureter without hydronephrosis
CPT/HCPCS: 36415; 76000-TC-FY; 82360; 82962; 88300-TC; 94760; C1758

== ENCOUNTER 2024-06-26 11:58 | Emergency (ER) | payer MEDICARE, OTHER ==
[2024-06-26 12:18] VITALS: BP 185/87; PULSE 71; RESP 18; TEMP 98.4; BMI 28.1
[2024-06-26 13:21] LABS: HEMATOCRIT 43.6 % (40.1-51.0); HEMOGLOBIN 14.2 g/dL (13.7-17.5); MCHC 32.6 g/dl (32.3-36.5); MEAN CELL VOLUME 91.8 fl (79.0-92.2); MEAN PLT VOLUME 10.7 fl (9.4-12.4); PLATELET COUNT 224 x10^3/uL (163-337); RDW 13.2 % (12.2-16.4)
[2024-06-26 13:30] LABS: INR 1.1 (0.83-1.09)
[2024-06-26 13:32] LABS: ACTIVATED PTT 35.3 SECONDS (25.2-36.5)
[2024-06-26] MEDS: ACETAMINOPHEN 1000 MG/100 ML BAG IVPB ONE (13:51)
[2024-06-26 13:52] LABS: POTASSIUM 4.3 mmol/L (3.5-5.1)
[2024-06-26 13:54] LABS: CALCIUM 9.3 mg/dL (8.5-10.1)
[2024-06-26 13:56] LABS: BLOOD UREA NITROGEN 16.9 mg/dL (7-18)
[2024-06-26 13:58] LABS: CREATININE 1.2 mg/dL (0.55-1.3)
[2024-06-26 13:59] LABS: BILIRUBIN,TOTAL 0.8 mg/dL (0.2-1)
[2024-06-26 14:01] LABS: TOT PROT 6.7 g/dl (6.4-8.2)
== END 2024-06-26 15:38 | disposition home or self-care (01) ==
LOC: JER 11:58
DX: I10 Essential (primary) hypertension (principal); R42 Dizziness and giddiness; R51.9 Headache, unspecified; R07.9 Chest pain, unspecified; R06.02 Shortness of breath
CPT/HCPCS: 0241U-QW; 36415; 71046-TC-FY; 80053; 84484; 85027; 85610; 85730; 93005; 93010; 99284-25